=== PATIENT | female | born 1980 | race Caucasian/White ===

== ENCOUNTER → 2020-05-03 | Outpatient (CLI) | payer OTHER | LOC: GMA MATASK 10:14 | PROVIDERS: ATTEND Family Medicine | DX: M25.59 Pain in other specified joint (principal) ==

== ENCOUNTER → 2020-05-11 | Outpatient (CLI) | payer OTHER ==
--- NOTE | 2020-05-14 09:18 | US ---
EXAM DESCRIPTION: Abdomen,Complete: Ultrasound. CLINICAL HISTORY: 39 years Female R94.5 COMPARISON: None Available. TECHNIQUE: Transabdominal scanning: grayscale and Doppler modes. FINDINGS: Gallbladder: normal size, shape, echogenicity; no intraluminal stones or sludge. No fluid around the gallbladder. No wall thickening. 2.9 mm. Non-tender with transducer pressure. Common bile duct: caliber 4.6 mm within normal limits. Liver: normal echogenicity; contour liver capsule smooth where seen. No fluid around the liver. Intrahepatic biliary ducts normal caliber. Doppler hepatopedal flow and normal caliber portal vein 10 mm. Long axis right lobe of 0.7 cm. Pancreas: normal size and echogenicity. Duct not seen. Complete abdominal aorta: Normal caliber from the proximal segment to the distal bifurcation.. IVC: visualized and normal caliber. Right kidney: long axis measures 11.6 cm; volume 141.9 mL. Cortical echogenicity is normal. Normal cortical thickness. No echogenic stones; no hydronephrosis. Left kidney: long axis measures 10.5. cm; volume measured 47 mL.. Cortical echogenicity is normal. Normal cortical thickness. No echogenic stones; no hydronephrosis. Spleen: Normal. No focal lesions.. 12 cm long axis. Other: None. IMPRESSION: 1. Gallbladder and common bile duct unremarkable. Normal size and echogenicity of the spleen. No ascites. 2. Liver and pancreas negative findings. 3. Sonographically normal kidneys bilaterally. Normal caliber IVC and abdominal aorta. Electronically signed by: Sergey Proctor MD 05/14/2020 9:17 AM [facility]
== END ==
LOC: US 09:04
PROVIDERS: ATTEND Family Medicine
DX: R94.5 Abnormal results of liver function studies (principal)